=== PATIENT | female | born 1960 | race Caucasian/White ===

== ENCOUNTER → 2016-11-15 08:47 | Outpatient (CLI) | payer MEDICAID ==
[~2016-11-15 08:47] MED LIST: CARBINOXAMIN PO; CELEXA40 MG PO; CINNAMON500 MG PO; CRANBERRY 400 M1 TA1 PO; GLUCOTROL XL 1010 MG PO; GLUCOTROL XL 5 M5 MG PO; LEVOTHYROXINE112 MCG PO; NEURONTIN 300300 MG PO; NORVASC5 MG PO; OMEPRAZOLE20 M1 PO; SINGULAIR10 MG PO; VITAMIN D5000 UNIT PO
[2016-11-15 09:38] LABS: CREATININE - SERUM 0.9 mg/dL (0.6-1.3)
[2016-12-24 10:41] VITALS: BMI 46.1
== END | disposition home or self-care (01) ==
LOC: D.LAB 08:47 → D.MRI 10:00
PROVIDERS: Internal Medicine Gastroenterology
DX: R11.2 Nausea with vomiting, unspecified (principal); R10.9 Unspecified abdominal pain

== ENCOUNTER 2016-12-24 08:59 | Day surgery (SDC) | payer MEDICAID ==
[~2016-12-24] VITALS: Ht 165.1 cm; Wt 125.9 kg
[2016-12-24 10:13] LABS: BASOPHILS 0.3 % (0.0-2.0); EOSINOPHILS 2.3 % (0-7); HEMATOCRIT 44.6 % (36.0-48.0); HEMOGLOBIN 14.5 g/dL (12-16); IMMATURE GRANULOCYTES 0.4 % (0-5); MCHC 32.5 g/dL (31.0-37.0); MCV 92.3 fL (80.0-100.0); MEAN PLATELET VOLUME 11.7 fL (7.4-10.4); MONOCYTES 5.3 % (2-11); NEUTROPHILS 70.7 % (40-80); PLATELET COUNT 217 10x3/uL (130-400); RBC 4.83 10x6/uL (4.00-5.40); RDW 13.5 % (11.5-14.5); WBC 9.4 10x3/uL (4.8-10.8)
[2016-12-24 10:29] LABS: CALC OSMOLALITY 279 mosm/kg (275-300); CALCIUM 9.3 mg/dL (8.5-10.1); CARBON DIOXIDE 29.5 mmol/L (21.0-32.0); CHLORIDE - SERUM 104 mmol/L (98-107); CREATININE - SERUM 0.8 mg/dL (0.6-1.3); GLUCOSE 127 mg/dL (74-106); POTASSIUM - SERUM 4.1 mmol/L (3.5-5.1); SODIUM 140 mmol/L (136-145); UREA NITROGEN 10 mg/dL (7-18); eGFR NON AFRICAN AMERICAN 78 mL/min (90-120)
[2016-12-24] MEDS ORDERED: NORVASC5 MG PO (10:32)
[2016-12-24] MEDS ORDERED: CELEXA40 MG PO (10:33)
[2016-12-24] MEDS ORDERED: CARBINOXAMIN PO (10:33)
[2016-12-24] MEDS ORDERED: NEURONTIN 300300 MG PO (10:34)
[2016-12-24] MEDS ORDERED: SINGULAIR10 MG PO (10:34)
[2016-12-24] MEDS ORDERED: OMEPRAZOLE20 M1 PO (10:34)
[2016-12-24] MEDS ORDERED: LEVOTHYROXINE112 MCG PO (10:34)
[2016-12-24] MEDS ORDERED: GLUCOTROL XL 1010 MG PO (10:34)
[2016-12-24] MEDS ORDERED: GLUCOTROL XL 5 M5 MG PO (10:35)
[2016-12-24] MEDS ORDERED: CINNAMON500 MG PO (10:35)
[2016-12-24] MEDS ORDERED: CRANBERRY 400 M1 TA1 PO (10:36)
[2016-12-24] MEDS ORDERED: VITAMIN D5000 UNIT PO (10:36)
[2016-12-24 10:41] VITALS: BP 114/57; Ht 165.1 cm; Wt 125.9 kg
--- NOTE | 2016-12-24 15:14 | NUR ---
1320 DRESSED. AWAKE & ALERT. GIVEN DISCHARCE INSTRUCTIONS INCLUDING MED REC., SHEET LIST NSAIDS & BLOOD THINNERS TO AVOID, & D/C INSTRUCTIONS SHEET POST ENDOSCOPIC PROCEDURES. PT VOICED UNDERSTANDING. TO PRIVATE CAR PER WHEELCHAIR BY THIS NURSE. HOME WITH DAUGHTER. Con GIL R.N.
--- NOTE | 2016-12-25 12:03 | OP ---
PATIENT NAME: GENNA FRAGA MEDICAL RECORD: [id number] :60 LOCATION:D.OPS ADMISSION DATE: SURGEON: JESUS CAMP DO DATE OF OPERATION: 12/24/2016 PROCEDURE: Esophagogastroduodenoscopy with biopsies. ENDOSCOPIST: Jesus Camp DO SCOPE: Olympus video gastroscope. MEDICATIONS: Propofol per anesthesia. INDICATIONS FOR TIVA: TIVA, obesity. INDICATIONS FOR PROCEDURE: Abdominal pain in the epigastric region, dysphagia, heartburn, nausea and vomiting. FINDINGS: Informed consent was given. The patient was made comfortable with the above medications. After reaching an adequate level of sedation by slow IV push, the patient was placed on her left side. The endoscope was then advanced under direct visualization through the mouth to the second portion of the duodenum. The upper, middle, and distal thirds of the esophagus appeared normal. At the GE junction, there was some mild evidence of reflux induced esophagitis, grade A. Scope was advanced in the stomach and retroflexed to view the cardia. There was a diminutive sliding hiatal hernia present. The fundus, body, antrum and prepyloric region revealed patchy erythematous and granular mucosa consistent with erosive gastritis. In the antrum and prepyloric region, there were a few erosive and previously ulcerated site present. Random biopsies were taken in the stomach to rule out H. pylori and sent for histology. Scope was advanced down into the duodenum where the bulb and second portion of the duodenum appeared normal. Scope was then withdrawn from the patient. The patient tolerated the procedure fairly well and there were no complications. IMPRESSION: 1. Reflux esophagitis grade A. 2. Erosive gastritis. 3. Diminutive sliding hiatal hernia. PLAN AND RECOMMENDATIONS: 1. Continue current PPI for 6-8 more weeks, then consider stopping as tolerated. 2. Discharge home when recovery parameters are met. 3. Continue current diet with reflux precautions and continue current medications. 4. Notify the clinic if symptoms are worsened. TRANSINT:[id number] Voice Confirmation ID: [id number] DOCUMENT ID: [id number] OPERATIVE REPORT [id number] GENNA FRAGA JESUS CAMP DO at [id number] CC: [id number] DICTATION DATE: 12/24/16 4059 RN CIRCULATING: 12/24/[address] [facility] 12/24/16 [place] [id number] [place] [id number]
== END 2016-12-24 13:20 | disposition home or self-care (01) ==
LOC: D.OPS 08:59
PROVIDERS: Anesthesiology
DX: K21.0 Gastro-esophageal reflux disease with esophagitis (principal); K44.9 Diaphragmatic hernia without obstruction or gangrene; E66.9 Obesity, unspecified; R13.10 Dysphagia, unspecified; Z68.42 Body mass index [BMI] 45.0-49.9, adult